=== PATIENT | female | born 1945 ===

== ENCOUNTER 2020-05-08 13:46 | Inpatient (IN) ==
[2020-05-08] MEDS ORDERED: MORPHINE 4 MG/1 ML VIAL IV PRN (16:06)
[2020-05-08] MEDS ORDERED: DEXTROSE 50% 25 GM/50 ML VIAL IV PRN (16:06)
[2020-05-08] MEDS ORDERED: MAGNESIUM SULF RIDER 2 GM in PREMIX 1 EACH IV PRN (16:06)
[2020-05-08] MEDS ORDERED: GLUCAGON 1 MG VIAL IM PRN (16:06)
[2020-05-08] MEDS ORDERED: MAGNESIUM SULF RIDER 4 GM in PREMIX 1 EACH IV PRN (16:06)
[2020-05-08 16:31] LABS: ABG Base Excess -9.9 MMOL/L (-2.5-2.5); ABG HCO3 16.7 MMOL/L (20-26); ABG Oxygen Saturation 95.8 % (95-100); ABG PCO2 25.8 MM HG (35-48); ABG PH 7.348 (7.35-7.45); ABG PO2 93.1 MM HG (80-95); ABG TCO2 12.2 MMOL/L (23-27)
[2020-05-08] MEDS ORDERED: ALBUTEROL 2.5 MG/3 ML NEB RESP TX PRN (16:31)
[2020-05-08] MEDS: PIPERACILLIN/TAZOBACTAM 3,375 MG in SODIUM CHLORIDE 0.9% 100 ML IV SCH (16:54)
[2020-05-08] MEDS: FUROSEMIDE 40 MG/4 ML VIAL IV SCH (16:54)
[2020-05-08] MEDS: methylPREDNISolone SOD SUC 40 MG/1 ML VIAL IV SCH (16:54)
[2020-05-08] MEDS: PANTOPRAZOLE 40 MG TABLET PO SCH (16:55)
[2020-05-08] MEDS: carvediloL 3.125 MG TABLET PO SCH (16:55)
[2020-05-08] MEDS ORDERED: ALBUTEROL 2.5 MG/3 ML NEB RESP TX SCH (17:00)
[2020-05-08 17:18] LABS: Basophils # 0.1 10*3/uL (0.0-0.2); Basophils % 0.4 % (0.0-0.8); Hematocrit 43.2 VOL% (35.7-47.0); Immature Granulocytes % 3.7 %; Immature Granulocytes Absolute 0.55 #; Lymphocytes # 0.5 10*3/uL (1.4-4.0); Lymphocytes % 3.3 % (21.3-54.2); Mean Corpuscular HGB Conc 32.4 GM/DL (32-36); Mean Corpuscular Volume 93.5 FL (87-102); Mean Platelet Volume 11.8 FL (9.6-12.0); NRBC # 0.21 10*3/uL; Neutrophils % 88.6 % (38.7-73.9); Platelet Count 120 T/CUMM (130-400); Red Blood Count 4.62 MC/CUMM (3.8-5.5); Red Cell Distribution Width 14.6 % (9.3-17.3); White Blood Count 14.9 T/CUMM (4-12)
[2020-05-08 17:37] LABS: Lymphocytes 4 % (20-55); Myelocytes 1 %; Nucleated Red Blood Cells 2 (0-5); Schistocytes Few; Segmented Neutrophils 92 % (50-85); Total Cells Counted 100
[2020-05-08 17:38] LABS: Anisocytosis Slight
[2020-05-08 17:39] LABS: Ovalocytes Few; Platelet Estimate Adequate
[2020-05-08 17:51] LABS: PT Patient Result 70.1 SECS (9.8-11.9); Partial Thromboplastin Time 30.3 SECS (23.9-33.8)
[2020-05-08 18:08] LABS: Bilirubin,Total 2.5 MG/DL (0.2-1.0); Calcium 9.2 MG/DL (8.5-10.1); Osmolality,Calculated 271.1 MOS/KG (273-304); Potassium 4.7 MMOL/L (3.5-5.1); Thyroid Stimulating Hormone 5.68 uIU/ml (0.358-3.74); Total Protein 6.1 G/DL (6.4-8.3)
[2020-05-08 18:28] LABS: INR 7.3
[2020-05-08 18:31] LABS: Hepatitis B Core IgM Quant < 0.05 Index; Hepatitis B Surface Ag Quant < 0.10 Index; Hepatitis B Surface Ag Result Non-Reactive (NonReactive); Hepatitis C Virus Ab Quant 0.05 Index; Hepatitis C Virus Ab Result Non-Reactive (NonReactive)
[2020-05-08] MEDS ORDERED: SODIUM CHLORIDE 0.9% 500 ML IV ONE (18:56)
[2020-05-08] MEDS ORDERED: PHYTONADIONE 5 MG/5 ML ORAL.SYR PO ONE (18:56)
[2020-05-08] MEDS: ALBUTEROL/IPRATROPIUM 3 ML NEB RESP TX SCH (19:24)
[2020-05-08] MEDS: BUDESONIDE 0.5 MG/2 ML NEB RESP TX SCH (19:24)
[2020-05-08] MEDS ORDERED: ENOXAPARIN 30 MG/0.3 ML SYRINGE SUBCUT SCH (21:00)
[2020-05-08 23:11] LABS: ABG Base Excess -12.2 MMOL/L (-2.5-2.5); ABG HCO3 15.1 MMOL/L (20-26); ABG Oxygen Saturation 93.4 % (95-100); ABG PCO2 33.3 MM HG (35-48); ABG PH 7.245 (7.35-7.45); ABG PO2 90.3 MM HG (80-95); ABG TCO2 12.6 MMOL/L (23-27)
[2020-05-08] MEDS ORDERED: DOBUTamine 500 MG/250 ML PREMIX IV ONE (23:26)
[2020-05-08] MEDS: DOBUTamine 500 MG/250 ML PREMIX IV PRN (23:30)
[2020-05-08] MEDS ORDERED: SODIUM BICARBONATE 50 MEQ/50 ML VIAL IV ONE (23:42)
[2020-05-08 23:54] LABS: Bilirubin,Urine Negative (Negative); Blood, Urine Large mg/dL (Negative); Glucose,Urine (UA) Negative (Negative); Ketones,Urine Negative (Negative); Nitrite,Urine Negative (Negative); Protein,Urine 100 MG/DL; Urine Appearance CLOUDY (Clear); Urine Color Amber (Yellow); Urine Specific Gravity 1.016 (1.001-1.035); Urine Urobilinogen < 2.0 EU/DL (0.2-1.0)
[2020-05-08 23:55] LABS: Amorphous Crystals,Urine Moderate /HPF (Few); Bacteria,Urine Moderate /HPF (Few); RBC,Urine 21 /HPF (0-4); Squamous Epithelial Cell,Urine Occasional /HPF (0-10); WBC,Urine 29 /HPF (0-6)
[2020-05-08 23:56] LABS: Hyaline Casts,Urine 67 /LPF (0-3); Mucus,Urine Occasional /LPF (Occasional)
[2020-05-09 00:01] LABS: Barbiturates Screen,Urine Negative (Negative); Benzodiazepines Screen,Urine Negative (Negative); Cannabinoid Screen,Urine Negative (Negative); Opiate Screen,Urine Negative (Negative); Phencyclidine Screen,Urine Negative (Negative)
[2020-05-09 00:15] LABS: Basophils % 0.3 % (0.0-0.8); Hematocrit 36.5 VOL% (35.7-47.0); Hemoglobin 12.5 GM/DL (12.0-16.0); Immature Granulocytes % 3.7 %; Immature Granulocytes Absolute 0.57 #; Lymphocytes % 6.2 % (21.3-54.2); Mean Corpuscular HGB Conc 34.2 GM/DL (32-36); Mean Corpuscular Volume 90.3 FL (87-102); Monocytes % 5.8 % (1.7-12.7); NRBC # 0.34 10*3/uL; Platelet Count 80 T/CUMM (130-400); Red Blood Count 4.04 MC/CUMM (3.8-5.5); Red Cell Distribution Width 14.3 % (9.3-17.3); White Blood Count 15.3 T/CUMM (4-12)
[2020-05-09] MEDS ORDERED: SODIUM CHLORIDE 0.9% 500 ML IV ONE (00:37)
[2020-05-09] MEDS ORDERED: SODIUM BICARBONATE 50 MEQ/50 ML VIAL IV ONE (00:37)
[2020-05-09 00:42] LABS: Albumin 2.2 G/DL (3.4-5.0); Bilirubin,Total 1.8 MG/DL (0.2-1.0); CKMB % 2.3 %; Calcium 7.5 MG/DL (8.5-10.1); Osmolality,Calculated 285.1 MOS/KG (273-304); Potassium 4.8 MMOL/L (3.5-5.1); Total Protein 4.6 G/DL (6.4-8.3); Troponin I 0.461 NG/ML (0.00-0.045)
[2020-05-09] MEDS: ALBUTEROL/IPRATROPIUM 3 ML NEB RESP TX SCH ×4 (00:48→19:25)
[2020-05-09 00:50] LABS: INR 13.1; Partial Thromboplastin Time 41.5 SECS (23.9-33.8)
[2020-05-09] MEDS ORDERED: SODIUM CHLORIDE 0.9% 1,000 ML IV SCH (01:00)
[2020-05-09] MEDS: MORPHINE 4 MG/1 ML VIAL IV PRN ×2 (01:00→23:32)
[2020-05-09] MEDS: FUROSEMIDE 40 MG/4 ML VIAL IV SCH ×3 (02:49→17:12)
[2020-05-09 04:12] LABS: Basophils # 0.1 10*3/uL (0.0-0.2); Basophils % 0.4 % (0.0-0.8); Hematocrit 39.3 VOL% (35.7-47.0); Hemoglobin 13.2 GM/DL (12.0-16.0); Immature Granulocytes % 2.7 %; Immature Granulocytes Absolute 0.36 #; Lymphocytes % 7.5 % (21.3-54.2); Mean Corpuscular HGB Conc 33.6 GM/DL (32-36); Mean Corpuscular Volume 91.6 FL (87-102); Mean Platelet Volume 12.9 FL (9.6-12.0); Monocytes % 8.6 % (1.7-12.7); NRBC # 0.21 10*3/uL; Neutrophils % 80.8 % (38.7-73.9); Platelet Count 79 T/CUMM (130-400); Red Blood Count 4.29 MC/CUMM (3.8-5.5); Red Cell Distribution Width 14.5 % (9.3-17.3); White Blood Count 13.2 T/CUMM (4-12)
[2020-05-09 04:35] LABS: Band Neutrophils 5 % (0-10); Lymphocytes 4 % (20-55); Metamyelocytes 3 %; Nucleated Red Blood Cells 5 (0-5); Segmented Neutrophils 83 % (50-85); Total Cells Counted 100
[2020-05-09 04:36] LABS: Anisocytosis 1+; Macrocytosis 1+; Platelet Estimate Decreased
[2020-05-09 05:07] LABS: Albumin 2.7 G/DL (3.4-5.0); Bilirubin,Total 2.4 MG/DL (0.2-1.0); Calcium 8.6 MG/DL (8.5-10.1); Osmolality,Calculated 279.8 MOS/KG (273-304); Potassium 5.4 MMOL/L (3.5-5.1); Risk Ratio 2.47; Total Protein 5.5 G/DL (6.4-8.3); VLDL CHOLESTEROL 19.4 MG/DL
[2020-05-09 05:22] LABS: INR 28.7; PT Patient Result > 178.9 SECS (9.8-11.9); Partial Thromboplastin Time 58.9 SECS (23.9-33.8)
[2020-05-09] MEDS ORDERED: SODIUM CHLORIDE 0.9% 1,000 ML IV PRN (05:37)
[2020-05-09] MEDS: PIPERACILLIN/TAZOBACTAM 3,375 MG in SODIUM CHLORIDE 0.9% 100 ML IV SCH ×2 (06:00→17:08)
[2020-05-09] MEDS: methylPREDNISolone SOD SUC 40 MG/1 ML VIAL IV SCH ×5 (06:00→23:32)
[2020-05-09] MEDS: BUDESONIDE 0.5 MG/2 ML NEB RESP TX SCH ×2 (07:35→19:25)
[2020-05-09 08:21] LABS: CKMB % 1.3 %
[2020-05-09 08:22] LABS: Troponin I 0.695 NG/ML (0.00-0.045)
[2020-05-09] MEDS: carvediloL 3.125 MG TABLET PO SCH (08:32)
[2020-05-09] MEDS: PANTOPRAZOLE 40 MG TABLET PO SCH (08:32)
[2020-05-09 12:05] LABS: Basophils % 0.2 % (0.0-0.8); Hematocrit 35.9 VOL% (35.7-47.0); Hemoglobin 11.9 GM/DL (12.0-16.0); Immature Granulocytes Absolute 0.24 #; Lymphocytes # 0.6 10*3/uL (1.4-4.0); Lymphocytes % 5.2 % (21.3-54.2); Mean Corpuscular HGB Conc 33.1 GM/DL (32-36); Mean Corpuscular Volume 91.8 FL (87-102); Mean Platelet Volume 12.8 FL (9.6-12.0); Monocytes % 5.2 % (1.7-12.7); NRBC # 0.36 10*3/uL; Neutrophils % 87.4 % (38.7-73.9); Platelet Count 69 T/CUMM (130-400); Red Blood Count 3.91 MC/CUMM (3.8-5.5); Red Cell Distribution Width 14.5 % (9.3-17.3); White Blood Count 12.1 T/CUMM (4-12)
[2020-05-09 12:32] LABS: CKMB % 0.8 %
[2020-05-09 12:34] LABS: Troponin I 0.849 NG/ML (0.00-0.045)
[2020-05-09 12:45] LABS: Albumin 3.1 G/DL (3.4-5.0); Bilirubin,Total 1.8 MG/DL (0.2-1.0); Calcium 8.4 MG/DL (8.5-10.1); Osmolality,Calculated 278.2 MOS/KG (273-304); Potassium 5.2 MMOL/L (3.5-5.1); Total Protein 6.1 G/DL (6.4-8.3)
[2020-05-09 12:50] LABS: PT Patient Result 32.7 SECS (9.8-11.9)
[2020-05-09 12:51] LABS: INR 3.2; Partial Thromboplastin Time 32.5 SECS (23.9-33.8)
[2020-05-09] MEDS ORDERED: PHYTONADIONE 10 MG/1 ML AMP SUBCUT ONE (13:22)
[2020-05-09 13:33] LABS: INR 2.9; PT Patient Result 29.8 SECS (9.8-11.9); Partial Thromboplastin Time 33.1 SECS (23.9-33.8)
[2020-05-09] MEDS ORDERED: ALBUMIN 5% 25 GM in PREMIX 1 EACH IV SCH (17:00)
[2020-05-09] MEDS: FUROSEMIDE INJ 100 MG in SODIUM CHLORIDE 0.9% 90 ML IV SCH (17:41)
[2020-05-10] MEDS: ALBUTEROL/IPRATROPIUM 3 ML NEB RESP TX SCH ×4 (00:35→19:09)
[2020-05-10] MEDS: FUROSEMIDE INJ 100 MG in SODIUM CHLORIDE 0.9% 90 ML IV SCH ×5 (03:10→23:12)
[2020-05-10] MEDS: methylPREDNISolone SOD SUC 40 MG/1 ML VIAL IV SCH ×4 (05:22→23:12)
[2020-05-10] MEDS: PIPERACILLIN/TAZOBACTAM 3,375 MG in SODIUM CHLORIDE 0.9% 100 ML IV SCH ×2 (05:22→16:32)
[2020-05-10 05:30] LABS: Basophils % 0.2 % (0.0-0.8); Hematocrit 36.4 VOL% (35.7-47.0); Hemoglobin 12.2 GM/DL (12.0-16.0); Immature Granulocytes % 1.6 %; Immature Granulocytes Absolute 0.18 #; Lymphocytes # 0.5 10*3/uL (1.4-4.0); Lymphocytes % 4.5 % (21.3-54.2); Mean Corpuscular HGB Conc 33.5 GM/DL (32-36); Mean Corpuscular Volume 92.6 FL (87-102); Mean Platelet Volume 13.2 FL (9.6-12.0); Monocytes % 5.1 % (1.7-12.7); NRBC # 0.37 10*3/uL; Neutrophils % 88.6 % (38.7-73.9); Platelet Count 44 T/CUMM (130-400); Red Blood Count 3.93 MC/CUMM (3.8-5.5); Red Cell Distribution Width 14.7 % (9.3-17.3); White Blood Count 11.6 T/CUMM (4-12)
[2020-05-10 05:38] LABS: INR 3.6; PT Patient Result 36.1 SECS (9.8-11.9)
[2020-05-10 05:51] LABS: Lymphocytes 2 % (20-55); Metamyelocytes 1 %; Nucleated Red Blood Cells 8 (0-5); Segmented Neutrophils 93 % (50-85); Total Cells Counted 100
[2020-05-10 05:52] LABS: Hypochromasia 1+; Microcytosis 1+; Polychromasia Slight
[2020-05-10 05:53] LABS: Ovalocytes Slight; Platelet Estimate Decreased
[2020-05-10 06:01] LABS: Calcium 7.9 MG/DL (8.5-10.1); Osmolality,Calculated 286.1 MOS/KG (273-304); Potassium 5.2 MMOL/L (3.5-5.1)
[2020-05-10] MEDS: BUDESONIDE 0.5 MG/2 ML NEB RESP TX SCH ×2 (07:07→19:09)
[2020-05-10] MEDS ORDERED: PHYTONADIONE 5 MG/5 ML ORAL.SYR PO ONE (07:18)
[2020-05-10] MEDS: PANTOPRAZOLE 40 MG TABLET PO SCH (08:17)
[2020-05-10] MEDS: MORPHINE 4 MG/1 ML VIAL IV PRN ×2 (14:34→23:13)
[2020-05-10] MEDS: DOBUTamine 500 MG/250 ML PREMIX IV PRN (23:15)
[2020-05-11] MEDS: ALBUTEROL/IPRATROPIUM 3 ML NEB RESP TX SCH ×4 (01:43→19:33)
[2020-05-11] MEDS: ONDANSETRON 4 MG/2 ML VIAL IV PRN ×2 (05:31→10:01)
[2020-05-11] MEDS: methylPREDNISolone SOD SUC 40 MG/1 ML VIAL IV SCH ×4 (06:17→20:09)
[2020-05-11] MEDS: PIPERACILLIN/TAZOBACTAM 3,375 MG in SODIUM CHLORIDE 0.9% 100 ML IV SCH (06:17)
[2020-05-11 06:34] LABS: Basophils % 0.2 % (0.0-0.8); Hematocrit 36.8 VOL% (35.7-47.0); Hemoglobin 12.3 GM/DL (12.0-16.0); Immature Granulocytes % 1.6 %; Lymphocytes # 0.3 10*3/uL (1.4-4.0); Lymphocytes % 2.5 % (21.3-54.2); Mean Corpuscular HGB Conc 33.4 GM/DL (32-36); Mean Corpuscular Volume 91.5 FL (87-102); Monocytes % 3.1 % (1.7-12.7); NRBC # 0.23 10*3/uL; Neutrophils % 92.6 % (38.7-73.9); Red Blood Count 4.02 MC/CUMM (3.8-5.5); Red Cell Distribution Width 15.5 % (9.3-17.3); White Blood Count 12.7 T/CUMM (4-12)
[2020-05-11 06:46] LABS: Platelet Count 30 T/CUMM (130-400)
[2020-05-11 06:48] LABS: PT Patient Result 85.4 SECS (9.8-11.9)
[2020-05-11 06:54] LABS: Hypochromasia 1+; Lymphocytes 1 % (20-55); Microcytosis 1+; Nucleated Red Blood Cells 1 (0-5); Polychromasia Slight; Segmented Neutrophils 96 % (50-85); Total Cells Counted 100
[2020-05-11 06:55] LABS: Ovalocytes Slight; Platelet Estimate Decreased
[2020-05-11 06:59] LABS: Calcium 8.5 MG/DL (8.5-10.1); Osmolality,Calculated 276.6 MOS/KG (273-304)
[2020-05-11 07:20] LABS: Bilirubin,Total 1.6 MG/DL (0.2-1.0); Calcium 8.6 MG/DL (8.5-10.1); Osmolality,Calculated 274.6 MOS/KG (273-304); Potassium 5.1 MMOL/L (3.5-5.1); Total Protein 6.2 G/DL (6.4-8.3)
[2020-05-11] MEDS: BUDESONIDE 0.5 MG/2 ML NEB RESP TX SCH ×2 (07:35→19:33)
[2020-05-11] MEDS ORDERED: SODIUM CHLORIDE 0.9% 1,000 ML IV PRN (07:53)
[2020-05-11] MEDS: PANTOPRAZOLE 40 MG TABLET PO SCH (08:59)
[2020-05-11 09:40] LABS: INR 2.4; PT Patient Result 24.5 SECS (9.8-11.9)
[2020-05-11] MEDS: FUROSEMIDE INJ 100 MG in SODIUM CHLORIDE 0.9% 90 ML IV SCH ×2 (09:46→21:25)
[2020-05-11] MEDS: MORPHINE 4 MG/1 ML VIAL IV PRN ×2 (10:03→20:06)
[2020-05-11] MEDS ORDERED: LEVOFLOXACIN INJ 500 MG in PREMIX 1 EACH IV ONE (11:00)
[2020-05-11 13:42] LABS: Basophils % 0.1 % (0.0-0.8); Hematocrit 34.6 VOL% (35.7-47.0); Hemoglobin 11.7 GM/DL (12.0-16.0); Immature Granulocytes % 1.2 %; Immature Granulocytes Absolute 0.13 #; Lymphocytes # 0.2 10*3/uL (1.4-4.0); Lymphocytes % 2.1 % (21.3-54.2); Mean Corpuscular HGB Conc 33.8 GM/DL (32-36); Mean Corpuscular Volume 90.6 FL (87-102); Mean Platelet Volume 13.7 FL (9.6-12.0); Monocytes % 4.2 % (1.7-12.7); NRBC # 0.26 10*3/uL; Neutrophils % 92.4 % (38.7-73.9); Red Blood Count 3.82 MC/CUMM (3.8-5.5); Red Cell Distribution Width 15.6 % (9.3-17.3); White Blood Count 10.6 T/CUMM (4-12)
[2020-05-11 14:13] LABS: Platelet Count 22 T/CUMM (130-400)
[2020-05-11 14:56] LABS: Hypochromasia 1+; Lymphocytes 4 % (20-55); Myelocytes 1 %; Nucleated Red Blood Cells 4 (0-5); Polychromasia 1+; Segmented Neutrophils 90 % (50-85); Total Cells Counted 100
[2020-05-11 14:57] LABS: Anisocytosis 1+; Platelet Estimate Decreased
[2020-05-11] MEDS: POLYETHYLENE GLYCOL POWDER 17 GM PACK PO SCH (21:31)
[2020-05-12] MEDS: ALBUTEROL/IPRATROPIUM 3 ML NEB RESP TX SCH ×4 (01:16→19:37)
[2020-05-12 04:10] LABS: Basophils % 0.1 % (0.0-0.8); Hematocrit 35.9 VOL% (35.7-47.0); Hemoglobin 11.8 GM/DL (12.0-16.0); Immature Granulocytes % 1.4 %; Immature Granulocytes Absolute 0.15 #; Lymphocytes # 0.2 10*3/uL (1.4-4.0); Lymphocytes % 2.1 % (21.3-54.2); Mean Corpuscular HGB Conc 32.9 GM/DL (32-36); Monocytes % 4.1 % (1.7-12.7); NRBC # 0.35 10*3/uL; Neutrophils % 92.3 % (38.7-73.9); Red Blood Count 3.86 MC/CUMM (3.8-5.5); Red Cell Distribution Width 15.9 % (9.3-17.3); White Blood Count 10.9 T/CUMM (4-12)
[2020-05-12 04:14] LABS: Platelet Count 25 T/CUMM (130-400)
[2020-05-12 04:22] LABS: Calcium 8.9 MG/DL (8.5-10.1); Osmolality,Calculated 277.8 MOS/KG (273-304); Potassium 4.8 MMOL/L (3.5-5.1)
[2020-05-12] MEDS: FUROSEMIDE INJ 100 MG in SODIUM CHLORIDE 0.9% 90 ML IV SCH ×3 (04:26→13:59)
[2020-05-12 04:32] LABS: Albumin 3.3 G/DL (3.4-5.0); Bilirubin,Total 1.8 MG/DL (0.2-1.0); Calcium 8.7 MG/DL (8.5-10.1); Osmolality,Calculated 279.6 MOS/KG (273-304); Potassium 4.8 MMOL/L (3.5-5.1); Total Protein 6.2 G/DL (6.4-8.3)
[2020-05-12 04:37] LABS: Anisocytosis 1+; Hypochromasia 1+
[2020-05-12 04:38] LABS: Microcytosis 1+; Platelet Estimate Decreased; Polychromasia Slight
[2020-05-12 04:39] LABS: INR 1.8
[2020-05-12] MEDS: BUDESONIDE 0.5 MG/2 ML NEB RESP TX SCH ×2 (07:00→19:37)
[2020-05-12] MEDS: PANTOPRAZOLE 40 MG TABLET PO SCH (08:58)
[2020-05-12] MEDS: methylPREDNISolone SOD SUC 40 MG/1 ML VIAL IV SCH ×2 (08:58→21:02)
[2020-05-12] MEDS: MORPHINE 4 MG/1 ML VIAL IV PRN ×2 (15:46→21:12)
[2020-05-12] MEDS: POLYETHYLENE GLYCOL POWDER 17 GM PACK PO SCH (21:01)
[2020-05-13] MEDS: ALBUTEROL/IPRATROPIUM 3 ML NEB RESP TX SCH ×4 (01:25→20:04)
[2020-05-13] MEDS: MORPHINE 4 MG/1 ML VIAL IV PRN ×2 (03:22→21:20)
[2020-05-13] MEDS: FUROSEMIDE INJ 100 MG in SODIUM CHLORIDE 0.9% 90 ML IV SCH ×3 (03:22→17:38)
[2020-05-13 04:24] LABS: Basophils % 0.1 % (0.0-0.8); Hematocrit 35.8 VOL% (35.7-47.0); Hemoglobin 11.7 GM/DL (12.0-16.0); Immature Granulocytes Absolute 0.12 #; Lymphocytes # 0.2 10*3/uL (1.4-4.0); Lymphocytes % 1.7 % (21.3-54.2); Mean Corpuscular HGB Conc 32.7 GM/DL (32-36); Mean Corpuscular Volume 93.2 FL (87-102); Monocytes % 2.9 % (1.7-12.7); Neutrophils % 94.3 % (38.7-73.9); Red Blood Count 3.84 MC/CUMM (3.8-5.5); Red Cell Distribution Width 16.1 % (9.3-17.3); White Blood Count 11.7 T/CUMM (4-12)
[2020-05-13 04:27] LABS: Platelet Count 33 T/CUMM (130-400)
[2020-05-13 04:37] LABS: Calcium 9.2 MG/DL (8.5-10.1); Osmolality,Calculated 285.2 MOS/KG (273-304); Potassium 4.7 MMOL/L (3.5-5.1)
[2020-05-13 04:44] LABS: Albumin 3.2 G/DL (3.4-5.0); Bilirubin,Total 1.5 MG/DL (0.2-1.0); Calcium 8.9 MG/DL (8.5-10.1); Osmolality,Calculated 287.9 MOS/KG (273-304); Potassium 4.7 MMOL/L (3.5-5.1); Total Protein 6.6 G/DL (6.4-8.9)
[2020-05-13 05:35] LABS: Hypochromasia 1+; Lymphocytes 2 % (20-55); Myelocytes 1 %; Nucleated Red Blood Cells 6 (0-5); Polychromasia Slight; Segmented Neutrophils 95 % (50-85); Total Cells Counted 100
[2020-05-13 05:36] LABS: Microcytosis 1+; Ovalocytes Slight; Platelet Estimate Decreased
[2020-05-13 06:01] LABS: INR 1.9; PT Patient Result 19.4 SECS (9.8-11.9)
[2020-05-13] MEDS: BUDESONIDE 0.5 MG/2 ML NEB RESP TX SCH ×2 (07:18→20:05)
[2020-05-13] MEDS ORDERED: WARFARIN 5 MG TABLET PO ONE (07:37)
[2020-05-13] MEDS: PANTOPRAZOLE 40 MG TABLET PO SCH (09:15)
[2020-05-13] MEDS: methylPREDNISolone SOD SUC 40 MG/1 ML VIAL IV SCH ×3 (09:15→22:50)
[2020-05-13] MEDS: lisinopriL 5 MG TABLET PO SCH (09:15)
[2020-05-13] MEDS ORDERED: LEVOFLOXACIN INJ 250 MG in PREMIX 1 EACH IV SCH (11:00)
[2020-05-13] MEDS: POLYETHYLENE GLYCOL POWDER 17 GM PACK PO SCH (21:54)
[2020-05-14] MEDS: MORPHINE 4 MG/1 ML VIAL IV PRN (00:57)
[2020-05-14] MEDS: ALBUTEROL/IPRATROPIUM 3 ML NEB RESP TX SCH ×4 (01:36→19:57)
[2020-05-14] MEDS: FUROSEMIDE INJ 100 MG in SODIUM CHLORIDE 0.9% 90 ML IV SCH ×3 (03:43→14:10)
[2020-05-14 05:57] LABS: Basophils % 0.3 % (0.0-0.8); Eosinophils # 0.1 10*3/uL (0.0-0.87); Eosinophils % 0.5 % (0.00-10.9); Hematocrit 42.9 VOL% (35.7-47.0); Hemoglobin 13.5 GM/DL (12.0-16.0); Immature Granulocytes % 1.2 %; Immature Granulocytes Absolute 0.14 #; Lymphocytes # 0.2 10*3/uL (1.4-4.0); Lymphocytes % 1.4 % (21.3-54.2); Mean Corpuscular HGB Conc 31.5 GM/DL (32-36); Mean Corpuscular Volume 96.8 FL (87-102); Mean Platelet Volume 11.6 FL (9.6-12.0); Monocytes % 2.6 % (1.7-12.7); NRBC # 1.13 10*3/uL; Platelet Count 47 T/CUMM (130-400); Red Blood Count 4.43 MC/CUMM (3.8-5.5); Red Cell Distribution Width 16.3 % (9.3-17.3); White Blood Count 11.5 T/CUMM (4-12)
[2020-05-14 06:14] LABS: INR 2.3; PT Patient Result 23.2 SECS (9.8-11.9)
[2020-05-14 06:20] LABS: Albumin 3.1 G/DL (3.4-5.0); Bilirubin,Total 2.2 MG/DL (0.2-1.0); Calcium 9.2 MG/DL (8.5-10.1); Osmolality,Calculated 290.2 MOS/KG (273-304); Potassium 5.2 MMOL/L (3.5-5.1); Total Protein 6.7 G/DL (5.0-7.5)
[2020-05-14 06:23] LABS: Nucleated Red Blood Cells 13 (0-5); Platelet Estimate Decreased; Segmented Neutrophils 99 % (50-85); Total Cells Counted 100
[2020-05-14] MEDS ORDERED: WARFARIN 2.5 MG TABLET PO ONE (06:39)
[2020-05-14] MEDS: BUDESONIDE 0.5 MG/2 ML NEB RESP TX SCH ×2 (07:45→19:57)
[2020-05-14] MEDS ORDERED: LEVOFLOXACIN 750 MG TABLET PO SCH (09:00)
[2020-05-14] MEDS: PANTOPRAZOLE 40 MG TABLET PO SCH (12:01)
[2020-05-14] MEDS: lisinopriL 5 MG TABLET PO SCH (12:01)
[2020-05-14] MEDS: methylPREDNISolone SOD SUC 40 MG/1 ML VIAL IV SCH ×2 (12:40→21:58)
[2020-05-14] MEDS: POLYETHYLENE GLYCOL POWDER 17 GM PACK PO SCH (21:58)
[2020-05-15] MEDS: ALBUTEROL/IPRATROPIUM 3 ML NEB RESP TX SCH (01:00)
[2020-05-15] MEDS ORDERED: LORazepam 2 MG/1 ML VIAL IV PRN (01:16)
[2020-05-15] MEDS: MORPHINE 4 MG/1 ML VIAL IV PRN ×3 (02:18→09:30)
[2020-05-15] MEDS: FUROSEMIDE INJ 100 MG in SODIUM CHLORIDE 0.9% 90 ML IV SCH (05:39)
[2020-05-15 08:01] VITALS: BP 57/35
== END 2020-05-15 11:46 | disposition expired | DRG 441 ==
LOC: N.TELEN → SUATTDRO 15:34 → N.ICU 05-09 00:03 → N.TELEN 05-13 10:45
PROVIDERS: ADMIT Internal Medicine; ATTEND Phlebology